=== PATIENT | male | born 1965 | race Caucasian/White ===

== ENCOUNTER → 2017-12-23 | Outpatient (CLI) | payer MEDICARE, MEDICAID ==
[~2017-12-23] MED LIST: BYSTOLIC5 MG PO; CARAFATE 1GM1 G PO; COLACE 100100 MG/CAP PO; HCTZ 25MG TAB25 MG PO; MAVIK4 MG PO; PRIL40 PO; VERELAN180 MG PO
== END ==
LOC: COL.RAD 07:14
DX: R11.2 Nausea with vomiting, unspecified (principal)
CPT/HCPCS: A9541

== ENCOUNTER → 2018-10-09 | Outpatient (CLI) | payer MEDICARE, MEDICAID | LOC: COL.PUL 09-22 13:00 | DX: R06.02 Shortness of breath (principal); F17.210 Nicotine dependence, cigarettes, uncomplicated | CPT/HCPCS: J7674 ==